=== PATIENT | female | born 1965 | race Caucasian/White ===

== ENCOUNTER 2023-01-11 10:39 | Outpatient (CLI) | payer OTHER, SELFPAY ==
--- NOTE | ~2023-01-11 | MR_ITS ---
MRI of the right knee Clinical history: Internal arrangement Technique: Coronal proton density and proton density-weighted images, sagittal proton-density and T2 fat-sat images, and axial proton-density fat-saturated images were acquired. Findings: Anterior and posterior cruciate ligaments are intact. Medial collateral ligament and the la teral collateral ligament complex are intact. Popliteus tendon is intact. Medial meniscus is intact, without evidence of tear. There is probable horizontal tear extensive invo lving the lateral meniscus versus prominent intrasubstance degenerative signal. There is moderate chondromalacia the central aspect of the medial femoral condyle. There is mild farshad dral thinning of the lateral compartment. There is diffuse moderate chondromalacia of the patellofemo ral compartment. Small tricompartmental osteophytes are present. Extensor mechanism is intact. Small joint effusion is present. [id number] Lee's cyst present . Impression: Probable extensive horizontal tear of the lateral meniscus versus less likely prominent intrasubstanc e degenerative signal. [id number] tricompartmental osteoarthritis, as detailed above. Small joint effusion with small to moderate Lee's cyst. Reviewed, dictated and finalized at location . Impression: Probable extensive horizontal tear of the lateral meniscus versus less likely p rominent intrasubstance degenerative signal. [id number] tricompartmental osteoarthritis, as detailed above. Small joint effusion with small to moderate Lee's cyst.
== END 2023-01-11 10:40 | disposition home or self-care (01) ==
DX: M17.11 Unilateral primary osteoarthritis, right knee (principal); M25.461 Effusion, right knee
CPT/HCPCS: 73721